=== PATIENT | female | born 1990 | race African-American/Black ===

== ENCOUNTER 2018-08-02 14:56 | Emergency (ER) | payer BC ==
[~2018-08-02] VITALS: Ht 162.6 cm; Wt 77.1 kg
[~2018-08-02 14:56] MED LIST: DOXYCYCLINE 10100 MG PO; FLAGYL500 MG PO; GLUCOPHAGE500 MG PO; HUMALOG100 UNIT/1 SUBQ; HYDROCODONE-AP1 EAC6 PO; HYDROCODONE-APA1 TA1 PO; IMITREX 25 MG T25 M1; LANTUS100 UNIT/M SUBQ; METFORMIN HCL500 MG; METFORMIN HCL500 MG PO; NAPROSYN500 MG PO; YASMIN 28 TABL1 EACH PO; ZOFRAN ODT4 MG PO
[2018-08-02] MEDS ORDERED: LANTUS100 UNIT/M SUBQ (15:03)
[2018-08-02] MEDS ORDERED: HYDROCODON-ACE1 EAC8 PO (15:20)
[2018-08-02 15:31] VITALS: BP 125/81
== END 2018-08-02 15:31 | disposition home or self-care (01) ==
LOC: M.ERS 14:56
DX: M25.551 Pain in right hip (principal); M25.552 Pain in left hip; E11.9 Type 2 diabetes mellitus without complications; M06.9 Rheumatoid arthritis, unspecified; Z79.4 Long term (current) use of insulin; Z88.1 Allergy status to other antibiotic agents; Z91.041 Radiographic dye allergy status

== ENCOUNTER 2021-05-08 11:46 | Emergency (ER) | payer BC ==
[~2021-05-08] VITALS: Ht 162.6 cm; Wt 82.1 kg
[~2021-05-08 11:46] MED LIST changes: +HYDROCODON-ACE1 EAC8 PO
[2021-05-08] MEDS ORDERED: TESSALON PERLE100 MG PO (13:11)
[2021-05-08] MEDS ORDERED: APAP W/CODEINE1 TA2 PO (13:11)
[2021-05-08] MEDS ORDERED: PROMETHAZI6.25 MG/5 PO (13:11)
[2021-05-08 13:20] VITALS: BP 129/81
--- NOTE | 2021-05-09 09:34 | EKG ---
[place] [address] ELECTROCARDIOGRAM REPORT Name: SARAHOTONIEL Elena Room: [facility]#: [id number] Admission: 05/08/21 Attend Phys: Discharge: 05/08/21 Date of : 89 Date of Service: 05/08/21 1151 Report #: [id number] THIS REPORT FOR: //name// [facility] ED Test Date: 2021-05-08 Test Time: 11:51:47 Pat Name: OTONIEL SMITH Department: Room: Gender: Vp [facility] 1990 Requested By: Minerva Mcfarland Order Number: [id number] MD: Marcelo Simmons Measurements Intervals [place] Rate: 68 P: 75 MA: 119 QRS: 23 QRSD: 77 T: 43 QT: 377 QTc: 401 Interpretive Statements Sinus rhythm Borderline short MA interval No previous ECG available for comparison Electronically Signed On 05-09-2021 9:34:39 CDT by Marcelo Simmons [email or web address] <ELECTRONICALLY SIGNED> By: Marcelo Simmons MD, [facility] 05/09/2134 1151 115 Marcelo Simmons MD, FACC /EPI
== END 2021-05-08 13:20 | disposition home or self-care (01) ==
LOC: M.ERS 11:46
DX: R07.89 Other chest pain (principal); Z20.822 Contact with and (suspected) exposure to COVID-19; E11.9 Type 2 diabetes mellitus without complications; Z87.42 Personal history of other diseases of the female genital tract; Z79.899 Other long term (current) drug therapy; Z79.4 Long term (current) use of insulin; Z88.1 Allergy status to other antibiotic agents; Z91.041 Radiographic dye allergy status